=== PATIENT | male | born 1980 | race Caucasian/White ===

== ENCOUNTER 2020-11-09 12:39 | Emergency (ER) | payer MEDICAID ==
[~2020-11-09] VITALS: Ht 175.3 cm; Wt 165.0 kg
--- NOTE | 2020-11-09 14:02 | NUR ---
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
[2020-11-09] MEDS ORDERED: KETOROLAC 30 MG/1 ML IM ONE (14:30)
--- NOTE | 2020-11-09 14:31 | NUR ---
PT RESTING ON GURNEY. STATES 10 BILATERAL ANKLE, KNEE, HIP AND SHOULDER PAIN. WARM BLANKETS PROVIDED. VSS. CALL LIGHT W/IN REACH
[2020-11-09 14:32] VITALS: BP 135/89
[2020-11-09] MEDS ORDERED: KETOROLAC 60 MG/2 ML ONE (14:36)
[2020-11-09] MEDS ORDERED: NEOSPORIN OINT. PKT 1 PACKET ONE (16:01)
== END 2020-11-09 16:12 | disposition home or self-care (01) ==
LOC: ED 16:00
DX: S20.229A Contusion of unspecified back wall of thorax, initial encounter (principal); S90.02XA Contusion of left ankle, initial encounter; S90.01XA Contusion of right ankle, initial encounter; W18.30XA Fall on same level, unspecified, initial encounter; Y93.89 Activity, other specified; Y92.89 Other specified places as the place of occurrence of the external cause; Y99.8 Other external cause status
CPT/HCPCS: 72072; 73130; 73610; 73630; 96372; 99284; J1885

== ENCOUNTER 2020-11-17 22:05 | Emergency (ER) | payer MEDICAID ==
[~2020-11-17] VITALS: Ht 175.3 cm; Wt 93.0 kg
[2020-11-17 22:12] VITALS: BP 122/78
--- NOTE | 2020-11-17 22:19 | NUR ---
YANELY TO SEE IN TRIAGE PT OK TO DC
--- NOTE | 2020-11-17 22:33 | NUR ---
Patient given discharge instructions and they have confirmed that they understand the instructions. Patient ambulatory with steady gait. NAD, ALL QUESTIONS ANSWERED APPROPRIATELY, DENIES ADDITIONAL NEEDS, NO PERSONAL BELONGINGS LEFT IN TRIAGE ROOM AFTER DC
== END 2020-11-17 22:35 | disposition home or self-care (01) ==
LOC: ED 22:20
DX: M79.673 Pain in unspecified foot (principal); Z72.9 Problem related to lifestyle, unspecified
CPT/HCPCS: 99283